=== PATIENT | female | born 1945 | race Two or more races ===

== ENCOUNTER 2016-09-16 21:23 | Emergency (ER) | payer MEDICARE, OTHER, MEDICAID ==
[~2016-09-16] VITALS: Ht 152.4 cm; Wt 58.6 kg
[2016-09-17] MEDS ORDERED: TETANUS, DIPHTHERIA, PERTUSSIS VAC/PF 0.5ML (>7YR OLD) IM ONE (00:15)
[2016-09-17] MEDS ORDERED: BACITRACIN ZINC OINT UDPKT TOP ONE (00:15)
[2016-09-17] MEDS ORDERED: ACETAMINOPHEN WITH CODEINE 300/30MG TABLET PO ONE (00:15)
[2016-09-17] MEDS ORDERED: LIDOCAINE HCL 1% 20ML VIAL (Pyxis) INJ MC ONE (01:30)
[2016-09-17 03:15] VITALS: BP 129/78
== END 2016-09-17 03:20 | disposition home or self-care (01) ==
LOC: ER 21:25
DX: S51.851A Open bite of right forearm, initial encounter (principal); W54.0XXA Bitten by dog, initial encounter; Y93.89 Activity, other specified; Y92.89 Other specified places as the place of occurrence of the external cause; Y99.8 Other external cause status
CPT/HCPCS: 12002; 73090; 90471; 90715; 99284; J3490